=== PATIENT | female | born 1965 | race African-American/Black ===

== ENCOUNTER 2019-03-09 23:39 | Emergency (ER) | payer SELFPAY ==
[~2019-03-09] VITALS: Ht 172.7 cm; Wt 73.0 kg
[2019-03-09 23:59] VITALS: BP 142/76
[2019-03-10] MEDS ORDERED: KETOROLAC 60MG/2ML VIAL IM STA (01:12)
[2019-03-10 01:24] LABS: CLARITY URINE CLEAR (CLEAR); COLOR URINE YELLOW (YELLOW); KETONES URINE TRACE (NEGATIVE); LEUKOCYTE ESTERASE URINE 2+ (NEGATIVE); NITRITE URINE NEGATIVE (NEGATIVE); OCCULT BLOOD URINE NEGATIVE (NEGATIVE); PROTEIN URINE NEGATIVE (NEGATIVE); SPECIFIC GRAVITY URINE 1.015 (1.005-1.030); UROBILINOGEN URINE 0.2 E.U./dL (0.2-1.0)
== END 2019-03-10 02:31 | disposition home or self-care (01) ==
LOC: ER 23:39
DX: N39.0 Urinary tract infection, site not specified (principal); R59.0 Localized enlarged lymph nodes; Z90.49 Acquired absence of other specified parts of digestive tract; Z88.0 Allergy status to penicillin
CPT/HCPCS: 81003; 99283; J1885; Z7610

== ENCOUNTER 2023-02-25 16:34 | Emergency (ER) | payer SELFPAY ==
[~2023-02-25] VITALS: Ht 172.7 cm; Wt 73.0 kg
[2023-02-25 17:08] VITALS: BP 134/77; PULSE 77; RESP 19; TEMP 98.3; O2SAT 99
[2023-02-25] MEDS ORDERED: NAPR-681 MT (18:36)
== END 2023-02-25 22:52 | disposition home or self-care (01) ==
LOC: ER 16:34
DX: M79.661 Pain in right lower leg (principal); Z90.49 Acquired absence of other specified parts of digestive tract; Z88.0 Allergy status to penicillin
CPT/HCPCS: 73560; 93971; 99284